=== PATIENT | female | born 1995 | race Caucasian/White ===

== ENCOUNTER 2017-03-31 16:19 | Emergency (ER) | payer OTHER | END 2017-03-31 17:09 | disposition home or self-care (01) | LOC: ER 16:19 | DX: S43.401A Unspecified sprain of right shoulder joint, initial encounter (principal); X50.9XXA Other and unspecified overexertion or strenuous movements or postures, initial encounter; Y92.838 Other recreation area as the place of occurrence of the external cause; Y93.67 Activity, basketball | CPT/HCPCS: 73030; 99070; 99283-25 ==